=== PATIENT | female | born 1945 | race Caucasian/White ===

== ENCOUNTER 2023-02-02 02:47 | Emergency (ER) | payer SELFPAY ==
[~2023-02-02] VITALS: Ht 162.6 cm; Wt 97.0 kg
[2023-02-02 02:51] VITALS: BP 141/65; PULSE 73; RESP 18; TEMP 97.9; O2SAT 97
== END 2023-02-02 06:10 | disposition left against medical advice (07) ==
LOC: ER 03:42
DX: Z53.21 Procedure and treatment not carried out due to patient leaving prior to being seen by health care provider (principal)
CPT/HCPCS: 99281